=== PATIENT | female | born 2000 | race Caucasian/White ===

== ENCOUNTER → 2021-05-21 | Outpatient (CLI) | payer BC ==
[~2021-05-21] VITALS: Ht 165 cm; Wt 48.6 kg
[~2021-05-21] MED LIST: ACETAMINOPHEN 500 MG TAB (TYLENOL) PO PRN; BAMLANIVIMAB 700 MG/ETESEVIMAB 1,400 MG IN NS IV ONE; EPINEPHrine INJECTION 1 MG/ML AMP IM PRN; ONDANSETRON 4 MG/2 ML (SDV) Z0FRAN IV PRN; diphenhydrAMINE 50 MG/ML INJ (BENADRYL) IV PRN
[2021-05-21 10:14] VITALS: BP 113/72
[2021-05-21 11:36] VITALS: BP 109/67
== END ==
LOC: INFUSION 10:08
PROVIDERS: ATTEND Nurse Practitioner Family
DX: U07.1 COVID-19 (principal)